=== PATIENT | male | born 1965 | race Caucasian/White ===

== ENCOUNTER 2017-07-14 07:10 | Emergency (ER) | payer OTHER ==
[~2017-07-14] VITALS: Ht 177.8 cm; Wt 86.2 kg
[2017-07-14 08:36] LABS: Eosinophils # (auto) 0.4 uL; Monocytes # (auto) 0.6 uL; White Blood Cell 7.6 10^3/uL (4.4-10.8)
[2017-07-14 08:38] LABS: Basophils # (auto) 0 uL; Basophils % (auto) 0.5 % (0.0-2.0); Hematocrit 51.7 % (41.0-53.0); Hemoglobin 17.6 g/dL (13.5-17.5); Lymphocytes # (auto) 1.8 uL; Lymphocytes % (auto) 23.8 % (10.0-50.0); Mean Corpuscular Hemoglobin 28.2 pg (28.0-32.0); Mean Corpuscular Hgb Conc. 34.1 g/dL (32.0-36.0); Mean Corpuscular Volume 82.7 fL (80.0-100.0); Monocytes % (auto) 8.4 % (0.0-12.0); Neutrophils # (auto) 4.8 uL; Neutrophils % (auto) 62.3 % (37.0-80.0); Nucleated Red Blood Cells % 0.2 %; Platelet Count (auto) 235 10^3/uL (140-450); Red Blood Cells 6.26 10^6/uL (4.5-5.90); Red Cell Distribution Width 14.2 % (11.8-14.3)
[2017-07-14 08:57] LABS: Albumin 4.4 g/dL (3.4-5.0); BUN/Creatinine Ratio 20.2; Bilirubin, Total 0.4 mg/dL (0.2-1.0); Calcium 9.3 mg/dL (8.5-10.1); Potassium 3.9 mmol/L (3.5-5.1); Total Protein 8.1 g/dL (6.4-8.2)
[2017-07-14 09:07] VITALS: BP 138/93
== END 2017-07-14 09:58 | disposition home or self-care (01) ==
LOC: ER 07:10
DX: L03.115 Cellulitis of right lower limb (principal); L30.9 Dermatitis, unspecified
CPT/HCPCS: 36415; 80053; 85025

== ENCOUNTER 2018-01-04 12:09 | Emergency (ER) | payer OTHER ==
[~2018-01-04] VITALS: Ht 177.8 cm; Wt 81.6 kg
[2018-01-04 14:36] VITALS: BP 144/93
== END 2018-01-04 14:57 | disposition home or self-care (01) ==
LOC: ER 12:09
DX: M79.671 Pain in right foot (principal); E78.5 Hyperlipidemia, unspecified; Z76.0 Encounter for issue of repeat prescription

== ENCOUNTER 2019-06-25 16:53 | Emergency (ER) | payer OTHER ==
[~2019-06-25] VITALS: Ht 177.8 cm; Wt 79.4 kg
[2019-06-25 17:12] VITALS: BP 133/85
== END 2019-06-25 21:50 | disposition home or self-care (01) ==
LOC: ER 16:53
DX: L30.9 Dermatitis, unspecified (principal); L29.9 Pruritus, unspecified; E78.5 Hyperlipidemia, unspecified; Z76.0 Encounter for issue of repeat prescription

== ENCOUNTER 2019-10-30 18:28 | Emergency (ER) | payer OTHER ==
[~2019-10-30] VITALS: Ht 177.8 cm; Wt 81.6 kg
[2019-10-30 19:39] LABS: Basophils # (auto) 0.1 uL; Basophils % (auto) 0.8 % (0.0-2.0); Eosinophils # (auto) 0.9 uL; Eosinophils % (auto) 9.9 % (0.0-7.0); Hematocrit 43.6 % (41.0-53.0); Hemoglobin 14.7 g/dL (13.5-17.5); Lymphocytes # (auto) 2.4 uL; Mean Corpuscular Hemoglobin 27.9 pg (28.0-32.0); Mean Corpuscular Hgb Conc. 33.7 g/dL (32.0-36.0); Monocytes # (auto) 0.7 uL; Monocytes % (auto) 7.2 % (0.0-12.0); Neutrophils # (auto) 5.4 uL; Neutrophils % (auto) 57.1 % (37.0-80.0); Platelet Count (auto) 226 10^3/uL (140-450); Red Blood Cells 5.25 10^6/uL (4.5-5.90); White Blood Cell 9.5 10^3/uL (4.4-10.8)
[2019-10-30 19:56] LABS: Calcium 8.2 mg/dL (8.5-10.1); Chloride 108 mmol/L (98-107); Potassium 3.8 mmol/L (3.5-5.1); Sodium 140 mmol/L (136-145)
[2019-10-30 19:59] LABS: Alanine Aminotransferase 37 U/L (16-61); Albumin 3.4 g/dL (3.4-5.0); Anion Gap 3 (5-15); Aspartate Aminotransferase 19 U/L (15-37); BUN/Creatinine Ratio 12.6; Blood Urea Nitrogen 12 mg/dL (7-18); Carbon Dioxide 29 mmol/L (21-32); GFR African American 107 mL/min; GFR Non-African American 88 mL/min; Glucose 82 mg/dL (74-106)
[2019-10-30 20:05] LABS: Alkaline Phosphatase 106 U/L (45-117); Bilirubin, Total 0.4 mg/dL (0.2-1.0); Total Protein 6.6 g/dL (6.4-8.2)
[2019-10-30] MEDS ORDERED: ASPirin 81 mg TAB PO ONE (20:15)
[2019-10-30 21:05] LABS: INR 0.99 (0.9-1.15); Partial Thromboplastin Time 27.4 sec (23.64-32.05)
[2019-10-31 00:30] VITALS: BP 148/65
== END 2019-10-31 01:48 | disposition home or self-care (01) ==
LOC: ER 18:28
DX: R07.9 Chest pain, unspecified (principal); E78.5 Hyperlipidemia, unspecified
CPT/HCPCS: 36415; 71046; 80053; 83880; 84443; 84484; 85025; 85379; 85610; 85730; 93005